=== PATIENT | female | born 1970 | race Caucasian/White ===

== ENCOUNTER → 2017-09-13 15:56 | Outpatient (CLI) | payer BC, SELFPAY ==
--- NOTE | 2017-09-13 15:59 | BI_ITS ---
MAMMOGRAPHY - BILATERAL SCREENING 3-D TYREE SYNTHESIS REASON FOR EXAM: Female, 46 years old. Bilateral Screening 3-D tomosynthesis PERTINENT HISTORY: Sister with breast cancer.. TECHNIQUE: 2-D mammograms and 3-D Tyree synthesis of the breast (s) were performed. CAD was performed. COMPARISON: 08/26/2016 FINDINGS: The breast composition is composed of scattered fibroglandular density. Scattered benign calcifications are seen. No dense spiculated masses or suspicious microcalcifications are identified. No architectural distortion is identified. There is no skin thickening or retraction. Stable well-defined subcentimeter nodules in both breasts consistent with lymph nodes. There has been no significant change since the prior study. BI/SCREENING MAMM (CAD), BILAT IMPRESSION: No mammographic signs of malignancy. Routine yearly mammograms recommended. ASSESSMENT CATEGORY: BIRADS Category 2: Benign. A letter regarding these results will be sent to the patient by the facility within 30 days. FOLLOW UP RECOMMENDATION: Yearly follow up mammogram recommended. (A) Approximately 10% of breast cancers are not detected by mammography. A normal mammogram should not delay biopsy of a clinically suspicious abnormality. Electronically Signed: Geo Burns MD at 10:50 EDT , Service support ,
== END ==
PROVIDERS: Family Provider Internal Medicine; PCP Internal Medicine; Visit Provider Clinical Nurse Specialist
DX: Z12.31 Encounter for screening mammogram for malignant neoplasm of breast (principal)
CPT/HCPCS: 77063; 77067

== ENCOUNTER → 2018-09-20 07:35 | Outpatient (CLI) | payer BC, SELFPAY ==
--- NOTE | 2018-09-20 07:42 | BI_ITS ---
MAMMOGRAPHY - BILATERAL SCREENING REASON FOR EXAM: Female, 47 years old. Routine annual screening examination. PERTINENT HISTORY: Sister with breast cancer. Aunt with breast cancer. TECHNIQUE: Digital bilateral breast tyree (3D mammographic acquisition) in the CC and MLO projections. 2-D mediolateral oblique (MLO) and craniocaudad (CC) views of both breasts were obtained. CAD: Full Field Digital Mammography with Computer Added Detection was performed. COMPARISON: Comparison is made with prior study dated September 13, 2017. FINDINGS: Breast Composition: There are scattered areas of fibroglandular density. There are no dominant masses or suspicious calcifications. There is a 4 mm x 4.5 mm well-defined nodule in the slightly upper lateral aspect of the left breast suggestive of a small cyst. This is unchanged. Stable appearance of the small bilateral benign appearing axillary lymph nodes. No other significant abnormalities are identified. There has been no significant change since the prior study. BI/SCREEN MAMM (CAD) W/TYREE BILAT IMPRESSION: Stable bilateral screening mammogram. Yearly follow-up mammogram recommended. (A) ASSESSMENT CATEGORY: BIRADS Category 2: Benign. A letter regarding these results will be sent to the patient by the facility within 30 days. Approximately 10% of breast cancers are not detected by mammography. A normal mammogram should not delay biopsy of a clinically suspicious abnormality. [id number] Electronically Signed: Fuad Edmondson, at 10:37 EDT , Service support ,
== END ==
PROVIDERS: Family Provider Internal Medicine; PCP Internal Medicine; Referring Provider Nurse Practitioner Women's Health; Visit Provider Nurse Practitioner Women's Health
DX: Z12.31 Encounter for screening mammogram for malignant neoplasm of breast (principal)
CPT/HCPCS: 77063; 77067

== ENCOUNTER → 2019-05-03 07:44 | Outpatient (CLI) | payer BC, SELFPAY ==
[2018-09-20 08:17] VITALS: BMI 34.2
[2019-05-03 08:57] LABS: AST(SGOT) 25 U/L (15-37); Alanine Aminotransfer ALT/SGPT 44 U/L (13-56)
== END ==
LOC: LAB.FUTURE 07:45 → LAB 07:48
PROVIDERS: PCP Internal Medicine; Referring Provider Podiatrist; Visit Provider Podiatrist
DX: B35.1 Tinea unguium (principal)
CPT/HCPCS: 36415; 84450; 84460

== ENCOUNTER → 2019-06-13 09:08 | Outpatient (CLI) | payer BC, SELFPAY ==
[2018-09-20 08:17] VITALS: BMI 34.2
[2019-06-13 10:02] LABS: AST(SGOT) 19 U/L (15-37); Alanine Aminotransfer ALT/SGPT 32 U/L (13-56)
== END ==
PROVIDERS: PCP Internal Medicine; Referring Provider Podiatrist; Visit Provider Podiatrist
DX: B35.1 Tinea unguium (principal)
CPT/HCPCS: 36415; 84450; 84460

== ENCOUNTER → 2019-08-14 13:04 | Outpatient (CLI) | payer BC, SELFPAY ==
[2018-09-20 08:17] VITALS: BMI 34.2
[2019-08-14 13:46] LABS: AST(SGOT) 21 U/L (15-37); Alanine Aminotransfer ALT/SGPT 30 U/L (13-56)
== END ==
PROVIDERS: PCP Internal Medicine; Referring Provider Podiatrist; Visit Provider Podiatrist
DX: B35.1 Tinea unguium (principal)
CPT/HCPCS: 36415; 84450; 84460

== ENCOUNTER → 2019-09-25 07:34 | Outpatient (CLI) | payer BC, SELFPAY ==
[2018-09-20 08:17] VITALS: BMI 34.2
--- NOTE | 2019-09-25 07:34 | BI_ITS ---
MAMMOGRAPHY - BILATERAL SCREENING REASON FOR EXAM: Female, 48 years old. Routine annual screening examination. PERTINENT HISTORY: Sister with breast cancer. Aunt with breast cancer. TECHNIQUE: Digital bilateral breast tyree (3D mammographic acquisition) in the CC and MLO projections. 2-D mediolateral oblique (MLO) and craniocaudad (CC) views of both breasts were obtained. CAD: Full Field Digital Mammography with Computer Added Detection was performed. COMPARISON: Comparison is made with prior study dated 09/20/2018 and 09/13/2017. FINDINGS: Breast Composition: There are scattered areas of fibroglandular density. There are no dominant masses or suspicious calcifications. Stable 4 mm x 4.5 mm well-defined nodule in the slightly upper lateral aspect of the left breast. Stable small benign appearing bilateral axillary lymph nodes. No other significant abnormalities are identified. There has been no significant change since the prior study. BI/SCREEN MAMM (CAD) W/TYREE BILAT IMPRESSION: Stable bilateral screening mammogram. Yearly follow-up mammogram recommended. (A) ASSESSMENT CATEGORY: BIRADS Category 2: Benign. A letter regarding these results will be sent to the patient by the facility within 30 days. Approximately 10% of breast cancers are not detected by mammography. A normal mammogram should not delay biopsy of a clinically suspicious abnormality. [id number] Electronically Signed: Fuad Edmondson, at 9:13 EDT , Service support ,
== END ==
PROVIDERS: PCP Internal Medicine; Referring Provider Nurse Practitioner Women's Health; Visit Provider Nurse Practitioner Women's Health
DX: Z12.31 Encounter for screening mammogram for malignant neoplasm of breast (principal); Z80.3 Family history of malignant neoplasm of breast
CPT/HCPCS: 77063; 77067

== ENCOUNTER → 2020-11-05 07:03 | Outpatient (CLI) | payer OTHER, SELFPAY ==
[2019-10-08 10:11] VITALS: BMI 34.2
--- NOTE | 2020-11-04 17:03 | BI_ITS ---
MAMMOGRAPHY - BILATERAL SCREENING REASON FOR EXAM: Female, 49 years old. Routine annual screening examination. PERTINENT HISTORY: Non-contributory. TECHNIQUE: Digital bilateral breast tyree (3D mammographic acquisition) in the CC and MLO projections. 2-D mediolateral oblique (MLO) and craniocaudad (CC) views of both breasts were obtained. CAD: Full Field Digital Mammography with Computer Added Detection was performed. COMPARISON: Comparison is made with prior examination 09/25/2019 and 09/20/2018. FINDINGS: Breast Composition: There are scattered areas of fibroglandular density. There are no dominant masses or suspicious calcifications. Stable 4 mm x 4.5 mm well-defined nodule in the slightly upper lateral aspect of the left breast. Stable benign-appearing bilateral axillary lymph nodes. No other significant abnormalities are identified. There has been no significant change since the prior study. BI/SCRN MAMM (CAD)W/TYREE BILAT IMPRESSION: Stable bilateral screening mammogram. Yearly follow-up mammogram recommended. (A) ASSESSMENT CATEGORY: BIRADS Category 2: Benign. A letter regarding these results will be sent to the patient by the facility within 30 days. Approximately 10% of breast cancers are not detected by mammography. A normal mammogram should not delay biopsy of a clinically suspicious abnormality. [id number] Electronically Signed: Fuad Edmondson MD at 8:49 EDT , Service support ,
== END ==
PROVIDERS: PCP Internal Medicine; Referring Provider Nurse Practitioner Women's Health; Visit Provider Nurse Practitioner Women's Health
DX: Z12.31 Encounter for screening mammogram for malignant neoplasm of breast (principal)
CPT/HCPCS: 77063; 77067

== ENCOUNTER 2021-04-15 16:40 | Outpatient (CLI) | payer OTHER, SELFPAY ==
[2021-04-22 14:07] LABS: HPV APTIMA, High Risk Negative (Negative)
== END 2021-04-15 23:59 | disposition home or self-care (01) ==
LOC: LABSPEC 16:42
PROVIDERS: PCP Internal Medicine; Referring Provider Nurse Practitioner Women's Health; Visit Provider Nurse Practitioner Women's Health
DX: Z12.4 Encounter for screening for malignant neoplasm of cervix (principal)
CPT/HCPCS: 87624; 88175; G0145

== ENCOUNTER → 2021-10-19 | Outpatient (CLI) | payer OTHER, SELFPAY ==
--- NOTE | 2021-10-19 07:46 | EKG12_ITS ---
Test Reason : HTN Blood Pressure : / mmHG Vent. Rate : 068 BPM Atrial Rate : 068 BPM P-R Int : 148 ms QRS Dur : 080 ms QT Int : 396 ms P-R-T Axes : 031 015 051 degrees QTc Int : 421 ms Normal sinus rhythm Normal ECG Confirmed by SARITA BLANK, GAGANDEEP ([id number]), editor dictionary MELANY DAMICO ([id number]) on 10/20/2021 6:16:16 AM Referred By: Payton Serrano Confirmed By:GAGANDEEP STEIN MD
== END | disposition home or self-care (01) ==
PROVIDERS: PCP Internal Medicine; Referring Provider Nurse Practitioner Family; Visit Provider Nurse Practitioner Family
DX: I10 Essential (primary) hypertension (principal)
CPT/HCPCS: 93005

== ENCOUNTER → 2021-11-12 | Outpatient (CLI) | payer OTHER, SELFPAY ==
--- NOTE | 2021-11-12 16:38 | BI_ITS ---
MAMMOGRAPHY - BILATERAL SCREENING 3-D TOMOSYNTHESIS REASON FOR EXAM: Female, 50 years old. screening for breast cancer PERTINENT HISTORY: No significant family history. TECHNIQUE: 2-D mammograms and 3-D Tomosynthesis of the breast (s) were performed. CAD was performed. COMPARISON: 11/04/2020 FINDINGS: The breast composition is heterogeneously dense that can obscure small breast masses. Scattered benign calcifications are seen. No dominant mass the right breast. Subcentimeter oval obscured equal density mass in the upper outer quadrant left breast mid depth and focal compression views recommended for further evaluation. No suspicious calcifications.. No architectural distortion is identified. There is no skin thickening or retraction. BI/SCRN MAMM (CAD)W/TYREE BILAT IMPRESSION: Subcentimeter oval obscured equal density mass in the upper outer quadrant left breast at mid depth and focal compression views recommended for further evaluation. ASSESSMENT CATEGORY: BIRADS Category 0: Incomplete. Need additional imaging evaluation as above. A letter regarding these results will be sent to the patient by the facility within 30 days. FOLLOW UP RECOMMENDATION: Additional imaging recommended as above. (E) Approximately 10% of breast cancers are not detected by mammography. A normal mammogram should not delay biopsy of a clinically suspicious abnormality. Electronically Signed: Dimitrios Hays MD at 8:29 EDT ,
== END | disposition home or self-care (01) ==
LOC: OPBI 11-13 07:37
PROVIDERS: PCP Internal Medicine; Visit Provider Nurse Practitioner Women's Health
DX: Z12.31 Encounter for screening mammogram for malignant neoplasm of breast (principal)
CPT/HCPCS: 77063; 77067

== ENCOUNTER → 2021-11-23 | Outpatient (CLI) | payer OTHER, SELFPAY ==
--- NOTE | 2021-11-23 14:36 | BI_ITS ---
MAMMOGRAPHY - UNILATERAL DIAGNOSTIC: LEFT BREAST REASON FOR EXAM: Female, 50 years old. Abnormal screening mammogram. PERTINENT HISTORY: Non-contributory. TECHNIQUE: Compression spot views of the left breast in the mediolateral oblique and craniocaudad projections were obtained. CAD: Full Field Digital Mammography with Computer Added Detection was performed. COMPARISON: Comparison is made with prior study dated 11/12/2021. FINDINGS: Breast Composition: The breasts are heterogeneously dense, which may obscure small masses. Stable 4 mm x 4.5 mm nodule seen in the slightly upper lateral aspect of the left breast. Correlation with ultrasound is recommended. No other significant abnormalities are identified. BI/DIAG MAMM W/CAD, UNILAT IMPRESSION: Persistent 4.5 mm x 4 mm nodule in the slightly upper lateral aspect of the left breast. Correlation with ultrasound is recommended. ASSESSMENT CATEGORY: BIRADS Category 0: Incomplete. Need additional imaging evaluation. A letter regarding these results will be sent to the patient by the facility within 30 days. Approximately 10% of breast cancers are not detected by mammography. A normal mammogram should not delay biopsy of a clinically suspicious abnormality. Electronically Signed: Fuad Edmondson MD at 15:40 EDT ,
--- NOTE | 2021-11-23 15:13 | US_ITS ---
STUDY: ULTRASOUND BREAST - LEFT REASON FOR EXAM: Female, 50 years old. Abnormal screening mammogram. TECHNIQUE: Axial and longitudinal images of the LEFT breast were performed with a high resolution ultrasound transducer. # OF IMAGES: 43 COMPARISON: Comparison is made with prior mammogram done earlier in the day and prior mammogram dated 11/12/2021. FINDINGS: LEFT breast at 3 cm from nipple. Increased flow is seen within it. Biopsy recommended. There is also evidence of a 5 mm x 4 mm x 5 mm hypoechoic nodule suggestive of a lymph node at the 1 o''clock position breast at 10 cm from nipple. US/Breast Limited Unilateral IMPRESSION: The mammographic abnormality corresponds to a 4 mm x 4 mm x 5 mm hypoechoic solid nodule at the 3 o''clock position of the breast 3 cm from nipple. Biopsy recommended. ASSESSMENT CATEGORY: BIRADS Category 4: Suspicious - Biopsy Should Be Considered. A letter regarding these results will be sent to the patient by the facility within 30 days. Electronically Signed: Fuad Edmondson MD at 9:59 EDT ,
== END | disposition home or self-care (01) ==
LOC: OPBI 14:28
PROVIDERS: PCP Internal Medicine; Visit Provider Nurse Practitioner Women's Health
DX: N63.20 Unspecified lump in the left breast, unspecified quadrant (principal); R92.8 Other abnormal and inconclusive findings on diagnostic imaging of breast
CPT/HCPCS: 76642; 77065

== ENCOUNTER → 2021-11-25 | Outpatient (CLI) | payer OTHER, SELFPAY ==
--- NOTE | 2021-11-25 08:00 | BRBX_PTH ---
PATIENT: MELIDA KEEN LOC: [facility] U#:[id number] AGE/SX: 50/F ROOM: RE11/25/[address]: Dr. Ton Arnold MD : 1970 BED: DIS: 11/25/2021 SPEC #: [id number] RECD: 11/25/21 11:03 STATUS: HARMONY CICI #: [id number] TYRESE: 11/25/21 08:[address]: Ton Arnold DEPT: SURGICAL PATHOLOGY RECD BY: Trent Ortiz ENTERED: 11/25/21 11:31 SP TYPE: BREAST BX OTHR DR: Dr. Codi Cordoba MD Tissues: Left breast, NOS Procedures: Surgery Specimen Level IV HEADER OPERATION: Left breast biopsy PRE-OP DIAGNOSIS: Left breast tissue TISSUE SUBMITTED: Left breast tissue MICROSCOPIC DIAGNOSIS Left breast, core biopsy: Fragments of fibroadipose tissue with fragments of benign lymph node tissue. Negative for atypia or malignancy. See comment. SJ:juan 11/26/2021 COMMENT Breast glandular and ductal tissue is not present in the specimen. The findings may represent intramammary lymph node. Correlation with clinical, radiologic findings and appropriate follow up are necessary. MICROSCOPIC DESCRIPTION Slides are reviewed. GROSS DESCRIPTION Received in fixative is one container labeled with the patient's name and designated left breast tissue. The specimen consists of multiple elongated fragments of worley-yellow fibroadipose tissue that in aggregate measure 2.5 x 1 x 0.1 cm. The entire specimen is submitted in one cassette. / MONO:juan 11/25/2021 TC:5 CPT: 47097
== END | disposition home or self-care (01) ==
LOC: LABSPEC 11:08
PROVIDERS: PCP Internal Medicine; Referring Provider Surgery; Visit Provider Surgery
DX: L98.7 Excessive and redundant skin and subcutaneous tissue (principal)
CPT/HCPCS: 88305

== ENCOUNTER → 2022-06-07 | Outpatient (CLI) | payer OTHER, SELFPAY ==
--- NOTE | 2022-06-07 09:29 | US_ITS ---
STUDY: ULTRASOUND BREAST - LEFT REASON FOR EXAM: Female, 51 years old. History of prior ultrasound-guided breast biopsy. TECHNIQUE: Axial and longitudinal images of the LEFT breast were performed with a high resolution ultrasound transducer. # OF IMAGES: 18 COMPARISON: Comparison is made with prior ultrasound dated November 23, 2021. FINDINGS: LEFT Breast: Persistent 3 mm x 4 mm x 4 mm hypoechoic nodule at the 3:00 position of the breast at 3 cm from the nipple. A tissue clip marker is seen within it. US/Breast Limited Unilateral IMPRESSION: Status post ultrasound-guided breast biopsy at the 3:00 position breast at 3 cm from the nipple. ASSESSMENT CATEGORY: BIRADS Category 2: Benign. A letter regarding these results will be sent to the patient by the facility within 30 days. Electronically Signed: Fuad Edmondson MD at 15:08 EDT ,
[2022-06-07 11:55] LABS: Absolute Lymphocyte Count 1.02 X10^3/uL (0.83-4.51); Absolute Neutrophil Count 3.9 X10^3/uL (2.0-7.7); Basophil# 0.04 X10^3/uL; Basophil% 0.7 % (0-1); Eosinophil# 0.04 X10^3/uL; Eosinophils% 0.7 % (0-5); Hematocrit 38.5 % (37-47); Lymphocyte # 1.02 X10^3/ul (0.83-4.51); Lymphocyte % 19.1 % (19-41); Mean Corp Hgb Conc 33.8 g/dL (32-36); Mean Corpuscular Hgb 30.3 pg (27.0-32.0); Mean Corpuscular Volume 89.7 fL (81-99); Mean Platelet Vol. 11.4 fl (6.2-12.0); Monocyte# 0.34 X10^3/uL; Monocyte% 6.4 % (0-10); NRBC Flagged by Analyzer 0 % (0-5); Neutrophil # 3.89 X10^3/uL (2.7-7.7); Neutrophil % 72.9 % (47-70); Platelet Count 179 K/mm3 (150-450); RBC Distribution Width CV 12.4 % (11.6-14.6); RBC Distribution Width SD 40.3 fl (35.1-43.9); Red Blood Count 4.29 M/mm3 (4.2-5.4); White Blood Count 5.3 K/mm3 (4.4-11.0)
[2022-06-07 12:40] LABS: Vitamin D,25 Hydroxy 11.3 ng/mL
[2022-06-07 12:51] LABS: T4 Free Direct 0.98 ng/dL (0.76-1.46)
== END | disposition home or self-care (01) ==
PROVIDERS: Nurse Practitioner Women's Health; PCP Internal Medicine; Referring Provider Surgery; Visit Provider Surgery
DX: R92.8 Other abnormal and inconclusive findings on diagnostic imaging of breast (principal); Z13.21 Encounter for screening for nutritional disorder; L65.9 Nonscarring hair loss, unspecified; R53.83 Other fatigue; Z13.29 Encounter for screening for other suspected endocrine disorder
CPT/HCPCS: 36415; 76642; 82306; 84439; 84443; 85025

== ENCOUNTER → 2022-07-05 | Outpatient (CLI) | payer OTHER, SELFPAY ==
[2022-07-05 13:16] LABS: Vitamin D,25 Hydroxy 29.1 ng/mL
== END | disposition home or self-care (01) ==
LOC: PAVLAB 11:45
PROVIDERS: PCP Internal Medicine; Referring Provider Nurse Practitioner Women's Health; Visit Provider Nurse Practitioner Women's Health
DX: Z13.21 Encounter for screening for nutritional disorder (principal)
CPT/HCPCS: 36415; 82306

== ENCOUNTER → 2022-08-02 | Outpatient (CLI) | payer OTHER, SELFPAY ==
[2022-08-02 13:47] LABS: Vitamin D,25 Hydroxy 48.1 ng/mL
== END | disposition home or self-care (01) ==
PROVIDERS: PCP Internal Medicine; Referring Provider Nurse Practitioner Women's Health; Visit Provider Nurse Practitioner Women's Health
DX: Z13.21 Encounter for screening for nutritional disorder (principal)
CPT/HCPCS: 36415; 82306

== ENCOUNTER → 2022-12-13 | Outpatient (CLI) | payer OTHER, SELFPAY ==
--- NOTE | 2022-12-13 09:47 | BI_ITS ---
MAMMOGRAPHY - BILATERAL SCREENING REASON FOR EXAM: Female, 52 years old. Routine annual screening examination. PERTINENT HISTORY: Sister with breast cancer. Aunt with breast cancer. TECHNIQUE: Digital bilateral breast tyree (3D mammographic acquisition) in the CC and MLO projections. 2-D mediolateral oblique (MLO) and craniocaudad (CC) views of both breasts were obtained. CAD: Full Field Digital Mammography with Computer Added Detection was performed. COMPARISON: Comparison is made with prior study dated November 12, 2021 and November 23, 2021. FINDINGS: Breast Composition: There are scattered areas of fibroglandular density. There are no dominant masses or suspicious calcifications. Interstitial clip marker is seen in the slightly upper lateral aspect of the left breast. The previously seen tiny nodule has almost completely resolved. No other significant abnormalities are identified. BI/SCRN MAMM (CAD)W/TYREE BILAT IMPRESSION: Stable bilateral screening mammogram. Status post ultrasound-guided biopsy of a nodular density in the slightly upper lateral aspect of the left breast. The nodule has almost completely resolved. Yearly follow-up mammogram recommended. (A) ASSESSMENT CATEGORY: BIRADS Category 2: Benign. A letter regarding these results will be sent to the patient by the facility within 30 days. Approximately 10% of breast cancers are not detected by mammography. A normal mammogram should not delay biopsy of a clinically suspicious abnormality. [id number] Electronically Signed: Fuad Edmondson MD at 11:12 EDT ,
== END | disposition home or self-care (01) ==
LOC: OPBI 09:46
PROVIDERS: PCP Internal Medicine; Referring Provider Nurse Practitioner Women's Health; Visit Provider Nurse Practitioner Women's Health
DX: Z12.31 Encounter for screening mammogram for malignant neoplasm of breast (principal); Z80.3 Family history of malignant neoplasm of breast
CPT/HCPCS: 77063; 77067

== ENCOUNTER → 2023-12-22 | Outpatient (CLI) | payer OTHER, SELFPAY ==
--- NOTE | 2023-12-22 17:16 | BI_ITS ---
MAMMOGRAPHY - BILATERAL SCREENING REASON FOR EXAM: Female, 53 years old. Routine annual screening examination. PERTINENT HISTORY: Sister with breast cancer. Aunt with breast cancer. Prior left ultrasound-guided breast biopsy. TECHNIQUE: Digital bilateral breast tyree (3D mammographic acquisition) in the CC and MLO projections. 2-D mediolateral oblique (MLO) and craniocaudad (CC) views of both breasts were obtained. CAD: Full Field Digital Mammography with Computer Added Detection was performed. COMPARISON: Comparison is made with prior study December 13, 2022 and November 12, 2021. FINDINGS: Breast Composition: There are scattered areas of fibroglandular density. There are no dominant masses or suspicious calcifications. A tissue clip marker is seen in the slightly upper lateral aspect of the left breast. Stable small bilateral axillary lymph nodes. No other significant abnormalities are identified. There has been no significant change since the prior study. BI/SCRN MAMM (CAD)W/TYREE BILAT IMPRESSION: Stable bilateral screening mammogram. Yearly follow-up mammogram recommended. (A) ASSESSMENT CATEGORY: BIRADS Category 2: Benign. A letter regarding these results will be sent to the patient by the facility within 30 days. Approximately 10% of breast cancers are not detected by mammography. A normal mammogram should not delay biopsy of a clinically suspicious abnormality. [id number] Electronically Signed: Fuad Edmondson MD at 8:42 EDT ,
== END | disposition home or self-care (01) ==
LOC: OPBI 12-23 08:36
PROVIDERS: PCP Internal Medicine; Referring Provider Nurse Practitioner Women's Health; Visit Provider Nurse Practitioner Women's Health
DX: Z12.31 Encounter for screening mammogram for malignant neoplasm of breast (principal); Z80.3 Family history of malignant neoplasm of breast
CPT/HCPCS: 77063; 77067

== ENCOUNTER → 2024-12-25 | Outpatient (CLI) | payer OTHER, SELFPAY ==
--- NOTE | 2024-12-25 17:16 | BI_ITS ---
EXAM: SCRN MAMM (CAD)W/TYREE BILAT DATE: 12/25/2024 CLINICAL HISTORY: F, Age 54 y/o , SCREENING Sister with breast cancer. Aunt with breast cancer. History of prior left ultrasound-guided breast biopsy. TECHNIQUE: Procedure Code: [id number] Modality: MG Procedure: SCRN MAMM (CAD)W/TYREE BILAT COMPARISON: Prior exam(s) dated December 23, 2023.. FINDINGS: TISSUE DENSITY: There are scattered areas of fibroglandular density. Bilateral Breast Mammographic Findings: No significant masses, calcifications or other abnormalities are identified. A tissue clip marker is once again seen in the slightly upper lateral aspect of the left breast. Stable small bilateral axillary lymph nodes. No suspicious masses, areas of developing architectural distortion, or suspicious calcifications. There has been no significant interval change. BI/SCRN MAMM (CAD)W/TYREE BILAT IMPRESSION: Stable bilateral screening mammogram. OVERALL FINAL ASSESSMENT BI-RADS 2: BENIGN RECOMMENDATION: Routine annual follow-up in 1 Year Additional Recommendation none A letter with findings and recommendations will be mailed to the patient. Reading Location: [id number]
--- OUTSIDE RECORDS SUMMARY | 2024-12-26 07:10 | XMS RPT_ITS | CCD ---
Author Organization [facility] ion Partnership [facility] Care Team Providers Care Communication Lecturer Name Role Phone Gato BLANK, Paula Bray Unavailable [phone] ROLANDO Ritter RN, Yesi Guzman Unavailable Unavailzoie Moore WARE SERVER, Paige Amaya Unavailable Dr. Codi Cordoba Primary Care Provider Dr. Codi Cordoba Referring Provider Dr. Ton Arnold Attending Provider Codi Cordoba MD Primary Care Provider Codi Cordoba MD Primary Care Provider Dr. Codi Cordoba Primary Care Provider Dr. Codi Cordoba Referring Provider Oscar WARE SERVER, WARE SERVER-C Paige Attending Provider ONEYDA ROSA Referring Unavailable ONEYDA ROSA Primary Care Unavailable ONEYDA ROSA Attending Unavailable ONEYDA ROSA Primary Care Unavailable LAURA GARCIA Referring Unavailable Codi Cordoba Primary Care Unavailable Paige Moore Referring Unavailable Paige Moore Attending Unavailable Paige Moore Attending Unavailable Codi Cordoba Referring Unavailable Codi Cordoba Primary Care Unavailable Medications Current Medications Medication Drug Class(es) Dates Sig (Normalized) Sig (Original) biotin 5 mg oral capsule (3 sources) Start: 06-07-2022 take 5 mg by mouth once daily Biotin Active 5 MG PO DAILY June 07, 2022 12:00am Cholecalciferol (2 sources) Vitamin D Start: 07-05-2022 take 1250 ug by mouth every week Cholecalciferol (Vitamin D3) Active 1250 MCG PO EVERY WEEK July 05, 2022 12:00am fluconazole 150 mg oral tablet (17 sources) Azole Antifungal Start: 07-12-2022 Fluconazole (Diflucan) 150 mg tablet Active 150 MG PO Q3D 2 July 12, 2022 12:00am Start: 08-18-2017 End: 09-19-2017 Fluconazole Discontinued 150 MG PO .COMPLEX 2 August 25, 2017 5:05pm September 19, 2017 8:16am 150 mg PO take one po now and repeat in 3 days Start: 11-12-2016 DIFLUCAN 150 M G TABS take 1 po now and repeat in 72 hours FLUCONAZOLE [id number] Paula Hoskins MD [place] (Nk) (4 sources) Start: 09-20-2018 [place] (Nk) A ctive September 20, 2018 12:00am Completed/Discontinued Medications Medication Drug Class(es) Dates Sig (Normalized) Sig (Original) Levonorgestrel-Ethin yl Estrad (7 sources) Progestin, Estrogen, Progestin-containi ng Intrauterine Device Start: 05-26-2013 End: 06-15-2017 Levonorgestrel-Eth inyl Estrad Discontinued 1 EACH PO DAILY May 26, 2013 12:00am June 15, 2017 11:26am meclizine hydrochloride 25 mg oral tablet (2 sources) Antiemetic Start: 07-04-2017 End: 02-15-2022 take 1 tablet by mouth every six hours as needed meclizine (ANTIVERT) 25 mg tab Take 1 tablet by mouth every 6 hours as needed (dizziness). 30 tablet 0 07/04/2017 02/15/2022 Discontinued Comment on above: Take 1 tablet by imelda th every 6 hours as needed (dizziness). Drug Treatment Unknown - unknown (2 sources) No information available. Problems Active Problems Problem Classification Problem Date Documented Date Episodic/Chronic Administrative/social admission (1 source) Persons encountering health services in other specified circumstances; Translations: [Encounter to establish care] Onset: 11-22-2024 Episodic Allergic reactions (2 sources) Unspecified contact dermatitis, unspecified cause; Translations: [Contact dermatitis and other eczema, unspecified cause] 06-07-2022 Episodic Influenza (1 source) Influenza-like illness; Translations: [Influenza due to unidentified influenza virus with other respiratory manifestations] Episodic Malaise and fatigue (5 sources) Fatigue; Translations: [Other fatigue] 06-07-2022 Episodic Menopausal disorders (7 sources) Menopausal syndrome; Translations: [Menopausal and female climacteric states] 04-15-2021 Chronic Menstrual disorders (3 sources) Irregular periods; Translations: [Irregular menstruation, unspecified] Onset: 07-23-2013 07-23-2013 Chronic Open wounds of head; neck; and trunk (7 sources) Laceration of forehead; Translations: [Laceration without foreign body of other part of head, initial encounter] 05-27-2013 Episodic Other circulatory disease (1 source) Elevated blood-pressure reading, without diagnosis of hypertension; Translations: [Elevated blood pressure reading without diagnosis of hypertension] Onset: 11-22-2024 Episodic Other nervous system disorders (1 source) Other chronic pain; Translations: [Chronic shoulder pain, unspecified laterality] Onset: 02-01-2024 Chronic Other nutritional; endocrine; and metabolic disorders (3 sources) Obesity; Translations: [Obesity, unspecified] Onset: 01-28-2014 01-28-2014 Chronic Other nutritional; endocrine; and metabolic disorders (1 source) Obesity, unspecified; Translations: [Obesity, unspecified class, unspecified obesity type, unspecified whether serious comorbidity present] Onset: 01-28-2014 Chronic Other screening for suspected conditions (not mental disorders or infectious disease) (8 sources) Mammography abnormal; Translations: [Other abnormal and inconclusive findings on diagnostic imaging of breast] Onset: 12-21-2024 Episodic Other skin disorders (3 sources) Loss of hair; Translations: [Nonscarring hair loss, unspecified] 06-07-2022 Episodic Other skin disorders (2 sources) Nonscarring hair loss, unspecified; Translations: [Alopecia, unspecified] 06-07-2022 Episodic Residual codes; unclassified (3 sources) Obstructive sleep apnea syndrome; Translations: [Obstructive sleep apnea (adult) (pediatric)] Onset: 01-28-2014 01-28-2014 Chronic Residual codes; unclassified (1 source) Obstructive sleep apnea (adult) (pediatric); Translations: [GUANAKITO (obstructive sleep apnea)] Onset: 11-22-2024 Chronic Screening and history of mental health and substance abuse codes (2 sources) Encounter for screening for depression; Translations: [Encounter for screening examination for other mental health and behavioral disorders] Onset: 11-22-2024 Episodic Spondylosis; intervertebral disc disorders; other back problems (3 sources) Prolapsed lumbar intervertebral disc; Translations: [Other intervertebral disc displacement, lumbar region] 07-08-2009 Chronic Unclassified (1 source) Acute cough; Translations: [Acute cough] Onset: 02-01-2024 Past or Other Problems Problem Classification Problem Date Documented Date Episodic/Chronic Biliary tract disease (3 sources) Cholelithiasis without obstruction; Translations: [Calculus of gallbladder without cholecystitis without obstruction] Onset: 08-14-2015 08-14-2015 Episodic Other female genital disorders (3 sources) Enlarged uterus; Translations: [Hypertrophy of uterus] Onset: 09-13-2016 09-14-2016 Episodic Other non-traumatic joint disorders (1 source) Pain in unspecified shoulder; Translations: [Chronic shoulder pain, unspecified laterality] Onset: 02-01-2024 Episodic Results Test Name Value Interpretation Reference Range Facility 25(OH)D3 [facility] 2024 25-hydroxyvitamin D3 [Mass/Vol] 24.5 ng/mL Low 31.0-80.0 [facility] Comment on above: Order Comment: Speci men Type: BLOOD SPECIMEN Ordering Facility: [facility] Address: [address] [place] [address] Performed By: #### 1 989-3 #### [facility] CLIA [id number] [address] [place] [address] [place] CNOVon 11-22-2024 CNOV Office Visit (FAMPWS) MEHNAZ TORRES ([id number]) 1970 F Date Time Provider Department 11/22/24 3:20 PM ONEYDA ROSA FAMPWS During your visit today, we recorded the following information about you: Temperature Pulse Respiration Blood pressure 97.9 degrees 79/minute 20/minute 156/95 Weight Height 93.4 kg 1.537 m Oneyda Rosa MD 11/22/2024 4:07 PM Signed Family Medicine OUTPATIENT VISIT November 22, 2024 CC: Establish care HPI: 53 year old female patient with a history of GUANAKITO Obesity Here to establish care Brought in a lipid panel. LDL 98. Last colonoscopy 2015, no colonic polyps. No wt loss, GI symptoms at present. Asking if she is due for dexa. No hx of fractures. She is feeling well today. She is feeling anxious due to having many life stressors currently. Does not feel she needs therapy or meds currently. She recently had a mammogram out of system. Review of Systems PAIN ASSESSMENT: Negative for pain, history of chronic pain, or current treatment for a chronic pain condition. GENERAL: No weight loss, or fevers HEENT: Negative for frequent or significant headaches RESPIRATORY: Negative for cough, wheezing, shortness of breath CARDIOVASCULAR: Negative for chest pain, palpitations, PND or orthopnea GI: No nausea, vomiting, or diarrhea or abdominal pain. No UT bleeding or melana : No history of dysuria, frequency, urgency, or change in urine appearance NEURO: No history of headaches, numbness, weakness, or changes to vision or hearing Health maintenance: Depression Screening Never done Anxiety Screening Never done Hepatitis B Vaccine(1 of 3 - 19+ 3-dose series) Never done Shingrix Vaccine(1 of 2) Never done Pneumococcal Vaccine: 50+(1 of 1 - PCV) Never done Diabetes Screening due on 06/13/2020 Colorectal Cancer Screening due on 07/08/2020 Cervical Cancer Screening due on 08/26/2021 DTaP,Tdap,Td Vaccine(2 - Td or Tdap) due on 07/20/2022 Mammogram Screening due on 12/14/2023 Covid-19 Vaccine( season) due on 10/22/2024 Allergies: ALLERGIES No Known Allergies Medications: Cholecalciferol, Vitamin D3, (VITAMIN D) 25 mcg (1,000 unit) cap Take 1 capsule by mouth once daily. Past Medical History: PAST MEDICAL HISTORY Diagnosis Date Arthritis of both shoulders Cholelithiasis 09/10/2015 Epigastric pain 09/10/2015 Herniated lumbar intervertebral disc L5-S1 Irregular menses Social History: SOCIAL HISTORY[1] Family History: Family History Problem Relation Age of Onset Hypertension Mother Heart Father Hypertropic Heart Breast Cancer Sister other (Crohn's) Sister Diabetes Maternal Grandmother Colon Cancer Maternal Grandfather Heart disease Paternal Grandfather BP 156/95 Pulse 79 Temp 36.6 ?C (97.9 ?F) (Temporal) Resp 20 Ht 153.7 cm (5' 0.5") Wt 93.4 kg (205 lb 12.8 oz) LMP 06/25/2016 (Exact Date) SpO2 96% BMI 39.53 kg/m? General: Awake, alert, not in acute distress, obese. DATABASE SUPPORT: Answering questions appropriately. No abnormal posturing or positioning. Speech is normal. Strength grossly intact. RESP: Clear lungs bilateral with good air entry, No increased work of breathing CVS: RRR, No murmur. Pulses 2+. GI: Abdomen is soft, non distended, non tender. No masses or hepatomegaly appreciated. Skin/Other: No rashes or lesions. HEENT: pupils equal Extremities: No peripheral edema, swelling or erythema of lower extremities. Labs: Reviewed the following: Pertinent labs as outlined above Lipids reviewed Imaging: Reviewed the following: Reviewed recent pertinent imaging Assessment/Plan: ASSESSMENT/PLAN: 1. Encounter to establish care - ICD9: V65.8, ICD10: Z76.89 (primary diagnosis) Reviewed hx as above - VITAMIN D 25 HYDROXY 2. Screening for depression - ICD9: V79.0, ICD10: Z13.31 neg - DEPRESSION SCREENING 3. Encounter for screening examination for other mental health and behavioral disorders - ICD9: V79.8, ICD10: Z13.39 Endorsing sypmtoms, declines referral to therapy. Will review at next visit - ANXIETY SCREENING 4. Obesity, unspecified class, unspecified obesity type, unspecified whether serious comorbidity present - ICD9: 278.00, ICD10: E66.9 Newly diagnosed - Behavioral intervention - COMPREHENSIVE METABOLIC PANEL - HEMOGLOBIN A1C 5. GUANAKITO (obstructive sleep apnea) - ICD9: 327.23, ICD10: G47.33 Not being treated. Discussed need for titration study, that GUANAKITO could contribute to HTN if this is confirmed. - PAP TITRATION PSG (CPAP, BIPAP, ASV) - POLYSOMNOGRAM (PSG) 6. Elevated blood pressure reading without diagnosis of hypertension - ICD9: 796.2, ICD10: R03.0 - Encouraged dietary sodium restriction/DASH diet - Recommended regular aerobic exercise. - Recommend home blood pressure monitoring, to bring results in on next visit - Goal of BP <130/80 - TSH W/REFLEX FT4 Cmp Discus (more content not included)... Normal [facility] Comprehensive metabolic 2000 panelon 11-22-2024 Albumin [Mass/Vol] 4.4 g/dL Normal 3.9-4.9 [facility] [place] Comment on above: Order Comment: Speci men Type: BLOOD SPECIMEN Ordering Facility: [facility] Address: [address] [place] [address] Performed By: #### T ANDRE, 15177-7 #### [facility] CLIA [id number] [address] [place] [address] [place] ALP [Catalytic activity/Vol] 92 U/L Normal 34-123 [facility] Comment on above: Order Comment: Speci men Type: BLOOD SPECIMEN Ordering Facility: [facility] Address: [address] [place] [address] Performed By: #### T ANDRE, 59974-8 #### [facility] CLIA [id number] [address] [place] [address] [place] ALT [Catalytic activity/Vol] 21 U/L Normal 7-38 [facility] Comment on above: Order Comment: Speci men Type: BLOOD SPECIMEN Ordering Facility: [facility] Address: [address] [place] [address] Performed By: #### T [facility], 73332-7 #### [facility] CLIA [id number] [address] [place] [address] [place] Anion gap [Moles/Vol] 12 mmol/L Normal 8-15 [facility] Comment on above: Order Comment: Speci men Type: BLOOD SPECIMEN Ordering Facility: [facility] Address: [address] [place] [address] Performed By: #### T JESÚS, 66061-6 #### [facility] CLIA [id number] [address] [place], [place] [id number] [place] AST [Catalytic activity/Vol] 22 U/L Normal 13-35 [facility] Comment on above: Order Comment: Speci men Type: BLOOD SPECIMEN Ordering Facility: [facility] Address: [address] [place], [place] [id number] Performed By: #### T JESÚS, 09090-9 #### [facility] CLIA [id number] [address] [place], [place] [id number] [place] Bilirubin [Mass/Vol] 0.3 mg/dL Normal 0.2-1.3 [facility] Comment on above: Order Comment: Speci men Type: BLOOD SPECIMEN Ordering Facility: [facility] Address: [address] [place], [place] [id number] Performed By: #### T JESÚS, 02537-5 #### [facility] CLIA [id number] [address] [place], [place] [id number] [place] Calcium [Mass/Vol] 9.5 mg/dL Normal 8.5-10.2 [facility] Comment on above: Order Comment: Speci men Type: BLOOD SPECIMEN Ordering Facility: [facility] Address: [address] [place], [place] [id number] Performed By: #### T JESÚS, 04210-5 #### [facility] CLIA [id number] [address] [place], [place] [id number] [place] Chloride [Moles/Vol] 103 mmol/L Normal 98-107 [facility] Comment on above: Order Comment: Speci men Type: BLOOD SPECIMEN Ordering Facility: [facility] Address: [address] [place], [place] [id number] Performed By: #### T JESÚS, 29887-6 #### [facility] CLIA [id number] [address] [place], [place] [id number] [place] CO2 [Moles/Vol] 27 mmol/L Normal 22-30 [facility] Comment on above: Order Comment: Speci men Type: BLOOD SPECIMEN Ordering Facility: [facility] Address: [address] [place] [address] Performed By: #### T ANDRE, 81734-1 #### [facility] CLIA [id number] [address] [place] [address] [place] Creatinine [Mass/Vol] 0.77 mg/dL Normal 0.58-0.96 [facility] Comment on above: Order Comment: Speci men Type: BLOOD SPECIMEN Ordering Facility: [facility] Address: [address] [place] [address] Performed By: #### T ANDRE, 35079-7 #### [facility] CLIA [id number] [address] [place] [address] [place] eGFRcr SerPlBld CKD-EPI 2020 91 mL/min/1.73m??? Normal >=60 [facility] Comment on above: Order Comment: Speci men Type: BLOOD SPECIMEN Ordering Facility: [facility] Address: [address] [place] [address] Result Comment: Sujata mated Glomerular Filtration Rate (eGFR) is calculated using the 2020 CKD-EPI creatinine equation. This equation utilizes serum creatinine, sex, and age as parameters. The creatinine assay has traceable calibration to isotope dilution-mass spectrometry. Refer to KDIGO guidelines for clinical interpretation. In patients with unstable renal function, e.g. those with acute kidney injury, the eGFR may not accurately reflect actual GFR. Performed By: #### T [facility], 90485-0 #### [facility] CLIA [id number] [address] [place] [address] [place] Glucose [Mass/Vol] 89 mg/dL Normal 74-99 [facility] Comment on above: Order Comment: Speci men Type: BLOOD SPECIMEN Ordering Facility: [facility] Address: [address] [place] [address] Result Comment: The [place] Diabetes Association (ADA) provides guidance for cutoff values for fasting glucose and random glucose. The ADA defines fasting as no caloric intake for at least 8 hours. Fasting plasma glucose results between 100 to 125 mg/dL indicate increased risk for diabetes (prediabetes). Fasting plasma glucose results greater than or equal to 126 mg/dL meet the criteria for diagnosis of diabetes. In the absence of unequivocal hyperglycemia, results should be confirmed by repeat testing. In a patient with classic symptoms of hyperglycemia or hyperglycemic crisis, random plasma glucose results greater than or equal to 200 mg/dL meet the criteria for diagnosis of diabetes. Reference: Standards of Medical Care in Diabetes 2016, [place] Diabetes Association. Diabetes Care. 2016.39(Suppl 1). Performed By: #### T ANDRE, 14012-1 #### [facility] CLIA [id number] [address] [place] [address] [place] Potassium [Moles/Vol] 4.3 mmol/L Normal 3.7-5.1 [facility] Comment on above: Order Comment: Speci men Type: BLOOD SPECIMEN Ordering Facility: [facility] Address: [address] [place] [address] Performed By: #### T ANDRE, 73901-8 #### [facility] CLIA [id number] [address] [place] [address] [place] Protein [Mass/Vol] 7.4 g/dL Normal 6.3-8.0 [facility] Comment on above: Order Comment: Speci men Type: BLOOD SPECIMEN Ordering Facility: [facility] Address: [address] [place] [address] Performed By: #### T [facility], 17298-3 #### [facility] CLIA [id number] [address] [place] [address] [place] Sodium [Moles/Vol] 142 mmol/L Normal 136-144 [facility] Comment on above: Order Comment: Speci men Type: BLOOD SPECIMEN Ordering Facility: [facility] Address: [address] [place] [address] Performed By: #### T [facility], 46207-3 #### [facility] CLIA [id number] [address] [place] [address] [place] Urea nitrogen [Mass/Vol] 13 mg/dL Normal 7-21 [facility] Comment on above: Order Comment: Blui men Type: BLOOD SPECIMEN Ordering Facility: [facility] Address: [address] [place] [address] Performed By: #### T [facility], 57829-4 #### [facility] CLIA [id number] [address] [place] [address] [place] HbA1c (Bld)on 11-22-2024 Average glucose Estimated from glycated hemoglobin (Bld) [Mass/Vol] 108 mg/dL Normal [facility] Comment on above: Order Comment: [facility] Type: BLOOD SPECIMEN Ordering Facility: [facility] Address: [address] [place] [address] Result Comment: eAG: (Estimated average glucose) is a calculated value from HgbA1c and is wireless sales representative of the average blood glucose level in the last 2-3 month period. Performed By: #### 5 5454-3 #### [facility] CLIA [id number] [address] [place] [address] [place] HbA1c (Bld) [Mass fraction] 5.4 % Normal 4.3-5.6 [facility] Comment on above: Order Comment: Sarah men Type: BLOOD SPECIMEN Ordering Facility: [facility] Address: [address] [place] [address] Result Comment: [place] Diabetes Association guidelines indicate that patients with HgbA1c in the range 5.7-6.4% are at increased risk for development of diabetes, and intervention by lifestyle modification may be beneficial. HgbA1c greater or equal to 6.5% is considered diagnostic of diabetes. Performed By: #### 5 5454-3 #### [facility] CLIA [id number] [address] [place] [address] [place] TSH W/REFLEX FT4on 10-02-202 5 TSH Qn 1.450 m[IU]/L Normal 0.270-4.200 [facility] Comment on above: Order Comment: Speci men Type: BLOOD SPECIMEN Ordering Facility: [facility] Address: [address] [place] [address] Performed By: #### T [facility], 85814-0 #### [facility] CLIA [id number] [address] [place] [address] [place] CNOVon 02-01-2024 CNOV Office Visit (UCWSTR) TORRESMEHNAZ ([id number]) 1970 F Date Time Provider Department 02/01/24 6:00 PM LAURA GARCIA WSTR During your visit today, we recorded the following information about you: Temperature Pulse Respiration Blood pressure 97.7 degrees 84/minute 18/minute 122/80 Weight 94.9 kg Laura Garcia PA-C 02/01/2024 7:19 PM Signed This note was created using [employer]. Subjective Mehnaz Torres is a 53 year old female. HPI Patient presents with a chief complaint of cough and chest congestion. She had COVID about 3 weeks ago. States her cough had improved but then the past 3 days worsened again. She started getting some pain in her chest with cough and with movement. States it also hurts to sneeze. Denies shortness of breath. No pain in her back. Denies leg pain or swelling. No history of PE or DVT. No recent surgeries. No diarrhea or vomiting. She also is complaining of bilateral shoulder pain for several years. She states that hurts to lift her arms up above her head and her arms feel weak. Denies any injury to her shoulders. She has not been evaluated for this previously. Review of Systems HENT: Positive for congestion. Negative for ear pain, rhinorrhea, sinus pressure, sinus pain and sore throat. Respiratory: Positive for cough. Cardiovascular: Positive for chest pain (with cough and movement). Musculoskeletal: Bilateral shoulder pain All other systems reviewed and are negative. PAST MEDICAL HISTORY Diagnosis Date Cholelithiasis 09/10/2015 Epigastric pain 09/10/2015 Herniated lumbar intervertebral disc L5-S1 Irregular menses No current outpatient medications on file. No current facility-administere d medications for this visit. PAST SURGICAL HISTORY Procedure Laterality Date COLONOSCOPY FLX DX W/COLLJ SPEC WHEN PFRMD 07/09/2015 Colonoscopy ESOPHAGOGASTRODUODEN OSCOPY TRANSORAL DIAGNOSTIC 07/09/2015 EGD L'SCOPE CHOLECYSTECTOMY 09/10/15 UNSPECIFIED ORAL SURGERY PROCEDURE, BY REPORT wisdom teeth removed. FAMILY HISTORY Problem Relation Age of Onset Hypertension Mother Heart Father Hypertropic Heart Breast Cancer Sister other (Crohn's) Sister Social History Tobacco Use Smoking status: Never Smokeless tobacco: Never Substance Use Topics Alcohol use: Yes Comment: Socially Drug use: No Objective BP 122/80 Pulse 84 Temp 36.5 ?C (97.7 ?F) (Tympanic) Resp 18 Wt 94.9 kg (209 lb 3.5 oz) LMP 06/25/2016 (Exact Date) SpO2 97% BMI 37.06 kg/m? Physical Exam Vitals reviewed. Constitutional: Appearance: Normal appearance. HENT: Head: Normocephalic and atraumatic. Right Ear: Tympanic membrane, ear canal and external ear normal. Left Ear: Tympanic membrane, ear canal and external ear normal. Nose: Congestion present. Mouth/Throat: Mouth: Mucous membranes are moist. Pharynx: Oropharynx is clear. Cardiovascular: Rate and Rhythm: Normal rate and regular rhythm. Heart sounds: Normal heart sounds. Pulmonary: Effort: Pulmonary effort is normal. Breath sounds: Normal breath sounds. No wheezing or rhonchi. Comments: Patient has tenderness over the right chest wall on palpation and with movement. Also some mild pain with taking a breath. Musculoskeletal: Comments: No erythema swelling or bruising of the bilateral shoulders. She has pain with lifting the arms past 90 degrees. Pain with internal and external rotation bilaterally. Radial pulse 2+ bilaterally. Normal hand grasp strength. Skin: General: Skin is warm and dry. Neurological: General: No focal deficit present. Mental Status: She is alert and oriented to person, place, and time. Assessment and Plan ASSESSMENT/PLAN: 1. Acute cough - ICD9: 786.2, ICD10: R05.1 (primary diagnosis) Chest x-ray is clear. Pain is reproducible with movement and palpation of the chest wall. Prednisone prescribed to help with shoulder pain and this as well. Jaronon. Discussed red flag symptoms to be seen in the ER. Patient agreeable. - XR CHEST 2V FRONTAL/LAT 2. Chronic shoulder pain, unspecified laterality - ICD9: 719.41, 338.29, ICD10: M25.519, G89.29 Patient has moderate degenerative changes on x-ray of both shoulders. Recommend follow-up with orthopedics. Prednisone Rx for pain. She is agreeable with plan. - XR SHOULDER GENERAL 3V OR MORE AP/TRUE AP/OTHER LEFT - XR SHOULDER GENERAL 3V OR MORE AP/TRUE AP/OTHER RIGHT Laura Garcia PA-C Allergies As of Date: 02/01/2024 (No Known Allergies) Date Reviewed: 02/01/2024 Reviewed by: Karoline Whalen LPN - Fully Assessed Reason for Visit: Cough [28] Cmt: Cough x 3 weeks Primary Visit Diagnosis:Acute cough [R05.1] Other Visit Diagnosis:Chronic shoulder pain, unspecified laterality [M25.519, G89.29] Order(s):XR CHEST 2V FRONTAL/LAT [[id number]] Order #: [id number] FUTURE XR SHOULDER GENERAL 3V OR MORE AP/TRUE AP (more content not included)... Normal [facility] XR CHEST 2V FRONTAL/LATon XR CHEST 2V FRONTAL/LAT * * *Final Repor t* * * DATE OF EXAM: Feb 01 2024 6:42PM WOX [id number] - XR CHEST 2V FRONTAL/LAT / PROCEDURE REASON: Acute cough * * * * Physician Interpretation * * * * EXAMINATION: CHEST RADIOGRAPH (2 VIEW FRONTAL and LATERAL) CLINICAL HISTORY: Acute cough MQ: [id number] EXAM DATE/TIME: 02/01/2024 6:42 PM COMPARISON: No relevant prior studies available. RESULT: Lines, tubes, and devices: None. Lungs and pleura: No consolidation. No lung mass. No pleural effusion. No pneumothorax. Cardiomediastinal silhouette: The cardiac silhouette is within normal limits. There is tortuosity of the thoracic aorta. Bones and soft tissues: There are degenerative changes in the spine. IMPRESSION: No acute radiographic abnormality. Maintenance Controller: [facility] Transcribe Date/Time: Feb 01 2024 6:47P Dictated by : MANDIE ABEL MD This examination was interpreted and the report reviewed and electronically signed by: MANDIE ABEL MD on Feb 01 2024 6:48PM EST [id number] CN Normal [facility] XR SHLDR >/=3V AP/KAYLEY AP/OTH R LTon 02-01-2024 XR SHLDR >/=3V AP/KAYLEY AP/OTHR LT * * *Final Report* * * DATE OF EXAM: Feb 01 2024 6:42PM WOX [id number] - XR SHLDR >/=3V AP/KAYLEY AP/OTHR LT / PROCEDURE REASON: multiple diagnoses * * * * Physician Interpretation * * * * PROCEDURE: Bilateral shoulders INDICATION: Chronic bilateral shoulder pain, no known injury. TECHNIQUE: XR SHLDR >/=3V AP/KAYLEY AP/OTHR LT, XR SHLDR >/=3V AP/KAYLEY AP/OTHR RT COMPARISON: None FINDINGS: Mild to moderate left glenohumeral joint osteoarthrosis. Minimal bilateral AC joint arthrosis. Acromiohumeral intervals are maintained. Right glenohumeral joint is within normal limits. No fracture or dislocation. IMPRESSION: Degenerative changes, left more advanced than right Maintenance Controller: [facility] Transcribe Date/Time: Feb 01 2024 7:11P Dictated by : KYLE ARIZMENDI MD This examination was interpreted and the report reviewed and electronically signed by: KYLE ARIZMENDI MD on Feb 01 2024 7:12PM EST [id number] CN Normal [facility] XR SHLDR >/=3V AP/KAYLEY AP/OTH R RTon 02-01-2024 XR SHLDR >/=3V AP/KAYLEY AP/OTHR RT * * *Final Report* * * DATE OF EXAM: Feb 01 2024 6:42PM WOX [id number] - XR SHLDR >/=3V AP/KAYLEY AP/OTHR RT / PROCEDURE REASON: multiple diagnoses * * * * Physician Interpretation * * * * PROCEDURE: Bilateral shoulders INDICATION: Chronic bilateral shoulder pain, no known injury. TECHNIQUE: XR SHLDR >/=3V AP/KAYLEY AP/OTHR LT, XR SHLDR >/=3V AP/KAYLEY AP/OTHR RT COMPARISON: None FINDINGS: Mild to moderate left glenohumeral joint osteoarthrosis. Minimal bilateral AC joint arthrosis. Acromiohumeral intervals are maintained. Right glenohumeral joint is within normal limits. No fracture or dislocation. 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 [facility] [address], [address] [place] [address] OFFICE VISIT Date of Service: 01/02/24 MR#: [id number] Acct: [id number] Name: MEHNAZ TORRES Rep #: [id number] 2 : 1970 Provider: MECHELLE hernandez Age/Sex: 53/F [place] [facility] [place]: Signed Intake Vital Signs 06/07/22 10:53 01/02/24 10:59 Height 5 ft 3 in 5 ft 3 in Weight: 209 lb 8 oz BMI 37.0 BP 134/86 H 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) Chief Complaint: Annual Custom 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 Required: No Is patient in pain?: No Allergies No Known Allergies Allergy (Verified 01/02/24 10:59) Is last menstrual period known: No Post menopausal: Yes Patient : No : No PFSH Medical History Fibroid, uterine History of hypertension Surgical History S/P cholecystectomy Family History Mother Hypertension Brother Hypertension Sister Breast cancer Social History (Updated 06/07/22 @ 10:53 by Hayley Dejesus) Smoking Status: Never smoker alcohol intake: current details: occasionally substance use type: does not use caffeine: Yes what type of physical activity do you participate in: none seatbelt use: always do you feel safe at home: Yes additional social history: Single- Works for the [employer] History 0 Elective abortions Hx Para Spontaneous abortions Hx # Term Pregnancies Ectopic pregnancies Hx # Pregnancies Multiple births # of living children HPI Encounter for routine gynecological examination Details: MEHNAZ TORRES is a 53 year old who presents for annual exam. Denies concerns Last PAP: 2021 History of abnormal PAP: no Last mammogram: 11/2023 History of abnormal mammogram: benign bx Colon cancer screening: thinks less then 10 yr at [facility] Other preventative health care screenings: [facility]. Female Reproductive History Questions: metorrhagia: No and sexually active: No Menopausal Treatment: No HRT, No Vaginal Estrogen, No Osphena, No OTC treatments and No prescription non-hormonal treatment ROS Const Constitutional: Denies fatigue, weight gain or weight loss Cardio Card: Denies chest pain Resp Resp: Denies cough or dyspnea on exertion GI GI: Denies abdominal pain, bloating, change in stool character, constipation or vomiting : Reports as per HPI; Denies difficulty voiding, pelvic pain, urinary frequency, urinary incontinence, urinary urgency, vaginal discharge or vaginal pruritus Exam Const General: cooperative, healthy appearing, no acute distress and well developed Orientation: alert, oriented to person and oriented to place [facility] Head: normal to inspection Neck Neck: normal visual inspection Thyroid: thyroid normal Lymphatic: no lymphadenopathy noted Chest Breast inspection: normal inspection of the breasts and normal inspection of the axillae Breast palpation: normal palpation of the breasts, normal palpation of the axillae and no axillary lymphadenopathy Resp Effort Inspection: normal respiratory effort GI Palpation: soft, no masses and nontender Rectal Exam: deferred External Female Exam: normal external appearance and normal appearance of the urethra Urethra: normal appearance of the urethra and normal palpation Speculum Exam - Vagina: normal appearance of the vagina and normal vaginal discharge Speculum Exam - Cervix: normal appearance of the cervix Bimanual Exam- Vagina Uterus: normal bimanual exam, uterine size normal, uterine shape normal and non-tender Bimanual Exam- Adnexa, other: normal adnexae, no masses, normal and non-tender Pelvic Support: normal Neuro General: patient alert and patient oriented x3 Psych Affect: normal affect Coding Level of Care Code Off vis,est,prev 40-64yrs Diagnoses Encounter for gynecological examination without abnormal finding Z01.419 Gynecological examination findings: abnormal findings ABSENT Assessment and Plan Assessment and Plan (1) Encounter for routine gynecological examination: Qualifiers: Gynecological examination findings: abnormal findings ABSENT Qualified Code(s): Z01.419 - Encounter for gynecological examination (general) (routine) without abnormal findings Orders: Orders POC Urinalysis 2 Dip (Clinic) Today Plan Completed breast and pelvic exam Reviewed diet and exercise Pap 2021 Mammogram recent breast self exam encouraged monthly Colonoscopy she will check with Dr Cordoba to see when due RTO 1 year, prn with problems Paige Moore [facility] 01/02/24 1115 Date Paige Moore NP WARE SERVER-C Cosigner Signature: (more content not included)... Normal [facility] No Panel InformationOrdered By: Paige Moore on 08-02-2022 Vitamin D 25-Hydroxy 48.1 ng/mL [facility] Comment on above: Vitamin D 25(OH) Sta tus Range Deficiency <20 ng/mL (50nmol/L) Insufficiency 20 - 30 ng/mL (50 - 75 nmol/L) Sufficiency 30 - 100 ng/mL (75 - 250 nmol/L) Toxicity >100 ng/mL (>250 nmol/L) No Panel InformationOrdered By: Paige Moore on 07-05-2022 Vitamin D 25-Hydroxy 29.1 ng/mL [facility] Comment on above: Vitamin D 25(OH) Sta tus Range Deficiency <20 ng/mL (50nmol/L) Insufficiency 20 - 30 ng/mL (50 - 75 nmol/L) Sufficiency 30 - 100 ng/mL (75 - 250 nmol/L) Toxicity >100 ng/mL (>250 nmol/L) Absolute lymphocyte countOrd ered By: Paige Moore on 06-07-2022 Lymphocytes Auto (Unsp spec) [#/Vol] 1.02 10*3/uL 0.83-4.51 [facility] Basophil percentageOrdered B y: Paige Moore on 06-07-2022 Basophils/100 WBC (Bld) 0.7 % 0-1 [facility] Eosinophils/100 WBC (Bld) 0.7 % 0-5 [facility] Neutrophils (Bld) [#/Vol] 3.9 10*3/uL 2.0-7.7 [facility] Neutrophils/100 WBC (Bld) 72.9 % 47-70 [facility] WBC (Bld) [#/Vol] 5.3 10*3/uL 4.4-11.0 [facility] Blood erythrocytes count (nu mber/volume)Ordered By: Paige Moore on 06-07-2022 RBC (Bld) [#/Vol] 4.29 10*6/uL 4.2-5.4 [facility] Blood hemoglobin measurement (mass/volume)Ordered By: Paige Moore on 06-07-2022 Hemoglobin (Bld) [Mass/Vol] 13.0 g/dL 12.0-15.0 [facility] Blood lymphocytes/100 leukoc ytesOrdered By: Paige Moore on 06-07-2022 Lymphocytes/100 WBC (Bld) 19.1 % 19-41 [facility] Blood monocytes/100 leukocyt esOrdered By: Paige Moore on 06-07-2022 Monocytes/100 WBC (Bld) 6.4 % 0-10 [facility] Blood platelet mean volumeOr dered By: Paige Moore on 06-07-2022 Platelet mean volume (Bld) [Entitic vol] 11.4 fL 6.2-12.0 [facility] Determination of erythrocyte mean corpuscular volume (MCV)Ordered By: Paige Moore on 06-07-2022 MCV (RBC) [Entitic vol] 89.7 fL 81-99 [facility] Hematocrit Auto (Bld) [Volum e fraction]Ordered By: Paige Moore on 06-07-2022 Hematocrit (Bld) [Volume fraction] 38.5 % 37-47 [facility] Laboratory - Chemistry and C hemistry - challengeOrdered By: Paige Moore on 06-07-2022 Free T4 [Mass/Vol] 0.98 ng/dL 0.76-1.46 [facility] Laboratory - Hematology and Cell countsOrdered By: Paige Moore on 06-07-2022 Erythrocyte distribution width (RBC) [Entitic vol] 40.3 fL 35.1-43.9 [facility] Erythrocyte distribution width (RBC) [Ratio] 12.4 % 11.6-14.6 [facility] Immature granulocytes/100 WBC (Bld) 0.200 % 0.0-0.9 [facility] Comment on above: IG% - Immature Granu locytes (promyelocytes, myelocytes and metamyelocytes) > 1% indicates that a LEFT SHIFT is Present. MCH (RBC) [Entitic mass] 30.3 pg 27.0-32.0 [facility] Nucleated RBC/100 WBC (Bld) [Ratio] 0 % 0-5 [facility] MCHC Auto (RBC) [Mass/Vol]Or dered By: Paige Moore on 06-07-2022 MCHC (RBC) [Mass/Vol] 33.8 g/dL 32-36 [facility] No Panel InformationOrdered By: Paige Moore on 06-07-2022 Thyroid Stimulating Hormone (TSH) 1.40 uIU/mL 0.358-3.74 [facility] Vitamin D 25-Hydroxy 11.3 ng/mL [facility] Comment on above: Vitamin D 25(OH) Sta tus Range Deficiency <20 ng/mL (50nmol/L) Insufficiency 20 - 30 ng/mL (50 - 75 nmol/L) Sufficiency 30 - 100 ng/mL (75 - 250 nmol/L) Toxicity >100 ng/mL (>250 nmol/L) Platelets bldOrdered By: Kang Moore on 06-07-2022 Platelets (Bld) [#/Vol] 179 10*3/uL 150-450 [facility] Influenza virus A and B RNA and SARS-CoV-2 (COVID-19) N gene panel MALLORIE+probe (Resp)on 02-16-2022 FLUAV RNA MALLORIE+probe Ql (Unsp spec) Negative Negative for Influenza A by RT-PCR [facility] FLUBV RNA MALLORIE+probe Ql (Unsp spec) Negative Negative for Influenza B by RT-PCR [facility] SARS-CoV-2 (COVID-19) RNA MALLORIE+probe Ql (Resp) SARS-CoV-2 (Agent of COVID-19) Detected by RT-PCR or equivalent method. Abnormal Not Detected [facility] Vital Signs Date Time Vital Sign Value Performing Clinician Faci lity 06-07-2022 10:53-0400 Body height 160.[address] Codi Cordoba Work Phone: [facility] 06-07-2022 10:45-0400 Body mass index (BMI) [Ratio] 32.6 kg/m2 Dr. Codi Cordoba Work Phone: [facility] 06-07-2022 10:45-0400 Body weight 83.[address] Codi Cordoba Work Phone: [facility] 06-07-2022 10:45-0400 Diastolic blood pressure 82 mm[Hg] Dr. Codi Cordoba Work Phone: [facility] 06-07-2022 10:45-0400 Systolic blood pressure 140 mm[Hg] Dr. Codi Cordoba Work Phone: [facility] 02-15-2022 12:00-0500 Body temperature 100 [degF] Abdi Ann MD Work Phone: [facility] 02-15-2022 12:00-0500 Body weight 78.11 kg Abdi Ann MD Work Phone: [facility] 02-15-2022 12:00-0500 Diastolic blood pressure 70 mm[Hg] Abdi Ann MD Work Phone: [facility] 02-15-2022 12:00-0500 Heart rate 92 /min Abdi Ann MD Work Phone: [facility] 02-15-2022 12:00-0500 Respiratory rate 20 /min Abdi Ann MD Work Phone: [facility] 02-15-2022 12:00-0500 SaO2% (BldA) [Mass fraction] 96 % Abdi Ann MD Work Phone: [facility] 02-15-2022 12:00-0500 Systolic blood pressure 110 mm[Hg] Abdi Ann MD Work Phone: [facility] 11-25-2021 07:59-0400 Body height 160.[address] Codi Cordoba Work Phone: [facility] Work Phone: 11-25-2021 07:59-0400 Body mass index (BMI) [Ratio] 33.3 kg/m2 Dr. Codi Cordoba Work Phone: [facility] Work Phone: 11-25-2021 07:59-0400 Body temperature 97.2 [degF] Dr. Codi Cordoba Work Phone: [facility] Work Phone: 11-25-2021 07:59-0400 Body weight 85.[address] Codi Cordoba Work Phone: [facility] Work Phone: 11-25-2021 07:59-0400 Diastolic blood pressure 91 mm[Hg] Dr. Codi Cordoba Work Phone: [facility] Work Phone: 11-25-2021 07:59-0400 Heart rate 70 /min Dr. Codi Cordoba Work Phone: [facility] Work Phone: 11-25-2021 07:59-0400 Respiratory rate 16 /min Dr. Codi Cordoba Work Phone: [facility] Work Phone: 11-25-2021 07:59-0400 SaO2% (BldA) [Mass fraction] 97 % Dr. Codi Cordoba Work Phone: [facility] Work Phone: 11-25-2021 07:59-0400 Systolic blood pressure 153 mm[Hg] Dr. Codi Cordoba Work Phone: [facility] Work Phone: Encounters Encounter Date Encounter Type Care Provider Facility Start: 12-25-2024 ambulatory Codi Mai y:[facility] Start: 11-22-2024 End: 11-22-2024 ambulatory ONEYDA ROSA Facility:[facility] Start: 11-22-2024 End: 11-22-2024 ambulatory ONEYDA ROSA Facility:[facility] Start: 02-01-2024 End: 02-01-2024 ambulatory LAURA GARCIA Facility:[facility] Start: 01-02-2024 Encounter for gynecological examination (general) (routine) without abnormal findings Paige [facility] Start: 01-02-2024 End: 01-02-2024 ambulatory Paige Moore [place] Start: 12-13-2022 End: 12-13-2022 ambulatory [facility] Work Phone: Start: 12-13-2022 End: 12-13-2022 Patient encounter procedure [facility] Work Phone: Start: 08-02-2022 End: 08-02-[address] Codi Cordoba Work Phone: [facility] Work Phone: Start: 08-02-2022 End: 08-02-[address] Codi Cordoba Work Phone: [facility] Start: 07-05-2022 End: 07-05-[address] Codi Cordoba Work Phone: [facility] Start: 06-07-2022 End: 06-07-[address] Codi Cordoba Work Phone: [facility] Start: 06-07-2022 End: 06-07-[address] Codi Cordoba Work Phone: [facility] Work Phone: Start: 06-07-2022 End: 06-07-[address] Codi Cordoba Work Phone: [facility] Ul[facility] Start: 02-16-2022 Telephone encounter Codi sewell MD Work Phone: [facility] [place] Comment on above: Results Start: 02-15-2022 End: 02-15-2022 Patient encounter procedure Abdi Ann MD Work Phone: [facility] Comment on above: Influenza-like illne ss (Primary Dx) Start: 12-10-2021 Telephone encounter Codi sewell MD Work Phone: [facility] [place] Comment on above: Results Start: 11-25-2021 End: 11-25-[address] Codi Cordoba Work Phone: [facility] Work Phone: Start: 11-25-2021 End: 11-25-[address] Codi Cordoba Work Phone: [facility], Specimen Start: 11-25-2021 End: 11-25-[address] Codi Cordoba Work Phone: [facility] Start: 11-23-2021 End: 11-23-[address] Codi Cordoba Work Phone: [facility] Work Phone: Start: 11-23-2021 End: 11-23-[address] Codi Cordoba Work Phone: [facility] Start: 11-12-2021 End: 11-12-2021 ambulatory [facility] Work Phone: Start: 11-12-2021 End: 11-12-2021 Patient encounter procedure [facility] Start: 10-19-2021 End: 10-19-2021 ambulatory [facility] Work Phone: Start: 10-19-2021 End: 10-19-2021 Patient encounter procedure [facility]Neu[facility] Procedures Date Procedure Procedure Detail Performing Clinician Start: 12-13-2022 Screening mammography Start: 06-07-[address] Codi Cordoba Work Phone: Start: 02-15-2022 COVID WITH FLUA+B, ROUTINE Abdi Ann MD Work Phone: Start: 11-23-[address] Codi Cordoba Work Phone: Start: 11-23-[address] Codi funez Work Phone: Start: 11-12-2021 Screening mammography Start: 11-04-2020 Mammography Codi gimenez MD Work Phone: Start: 07-09-2015 Colonoscopy Codi gimenez MD Work Phone: Plan of Treatment Date Care Activity Detail Author Start: 12-09-2024 DIABETES SCREEN DIABETES SCREEN [facility] Start: 07-20-2022 Urine microalbumin profile DTAP,TDAP,TD (2 - Td or Tdap) [facility] Start: 06-13-2022 LIPID SCREEN LIPID SCREEN [facility] Start: 11-04-2021 Mammography MAMMOGRAM [facility] Start: 10-22-2021 Influenza vaccination INFLUENZA (#1) [facility] Start: 08-26-2021 HPV TESTING HPV TESTING [facility] Start: 08-26-2021 PAP TESTING PAP TESTING [facility] Start: 04-02-2021 COVID-19 VACCINE (4 - Booster for Moderna series) COVID-19 VACCINE (4 - Booster for Moderna series) [facility] Start: 02-21-2021 DEPRESSION ASSESSMENT DEPRESSION ASSESSMENT [facility] Start: 07-08-2020 Colonoscopy COLONOSCOPY [facility] Start: 07-08-2020 COLORECTAL CANCER SCREENING COLORECTAL CANCER SCREENING [facility] Start: 06-13-2020 DIABETES SCREEN DIABETES SCREEN [facility] Start: 2018 SHINGRIX VACCINE (1 of 2) SHINGRIX VACCINE (1 of 2) [facility] Start: 09-13-2016 End: 09-14-2016 Transvaginal us, non-ob US Transvaginal [facility] Start: 09-13-2016 End: 09-14-2016 Us exam, pelvic, complete US Pelvis [facility] Start: 2013 COLOGUARD (FIT-DNA) COLOGUARD (FIT-DNA) [facility] Start: [address] COLONOGRAPHY [facility] Start: 2013 FECAL OCCULT BLOOD FECAL OCCULT BLOOD [facility] Start: 2013 SIGMOIDOSCOPY SIGMOIDOSCOPY [facility] Start: 1986 HEPATITIS C SCREENING HEPATITIS C SCREENING [facility] Start: 1986 HIV SCREENING HIV SCREENING [facility] Start: 06-02-1969 COVID-19 VACCINE (#1) COVID-19 VACCINE (#1) [facility] Start: 1968 HEPATITIS B (1 of 3 - 3-dose series) HEPATITIS B (1 of 3 - 3-dose series) [facility] MG Breast - bilatera l Screening [facility] Immunizations Immunization Date Immunization Notes Care Provider Luis ugalde 02-06-2016 influenza, injectabl e, quadrivalent, contains preservative Codi Cordoba MD Work Phone: [facility] Work Phone: 12-03-2013 influenza, seasonal, injectable Codi Cordoba MD Work Phone: [facility] 07-20-2012 tetanus toxoid, redu jessica diphtheria toxoid, and acellular pertussis vaccine, adsorbed Codi Cordoba MD Work Phone: [facility] 01-01-2012 influenza virus vaccine, unspecified formulation Codi Cordoba MD Work Phone: [facility] Payers Date Payer Category Payer Self-pay [id number] 2023 Private Health Insurance [id number] 2021 Private Health Insurance AETNA A ETNA CHOICE POS II [id number] 2021-Present [phone] [address] [place] [address] POS [id number] 2015 Unknown ANTHEM [id number] 2006 Unknown ANTHJOE MARION ACCE SS PPO [id number] 2006-Present [phone] [address] [place] [address] PPO [id number] Private Health Insurance AETNA [id number] Unknown [facility] [id number] Unknown [facility] PACKAGE PLAN [id number] Unknown [id number] Unknown [id number] Social History Date Type Detail Facility Start: 04-15-2021 End: 06-07-2022 Tobacco smoking status SCIS Unknown if ever smoked [facility] Start: 1970 Sex Assigned At Female C [facility] Work Phone[facility] Work Phone: Start: 07-04-2017 End: 02-15-2022 Alcohol intake Current drinker of alcohol (finding) [facility] Start: 06-05-2015 Alcohol Comment Socially Marcio [facility] Clinical Notes 07-09-2015 to 11-22-2024 Telephone Encounter - Deonna Mckay RN - 02/16/2022 9:41 AM Walter Ann MD - 02/15/2022 12:07 PM ESTTelephone Encounter - Lidia Mina DRIVER LICENSE EXAMINER - 12/23/2021 2:55 PM EDT Note Date & Type Note Facility 11-22-2024 Note HNO ID: [id number] Author: OENYDA ROSA MD Service: ? Author Type: Physician Type: Progress Notes Filed: 11/22/2024 16:07 Note Text: Family Medicine OUTPATIENT VISIT November 22, 2024 CC: Establish care HPI: 53 year old female patient with a history of GUANAKITO Obesity Here to establish care Brought in a lipid panel. LDL 98. Last colonoscopy 2015, no colonic polyps. No wt loss, GI symptoms at present. Asking if she is due for dexa. No hx of fractures. She is feeling well today. She is feeling anxious due to having many life stressors currently. Does not feel she needs therapy or meds currently. She recently had a mammogram out of system. Review of Systems PAIN ASSESSMENT: Negative for pain, history of chronic pain, or current treatment for a chronic pain condition. GENERAL: No weight loss, or fevers HEENT: Negative for frequent or significant headaches RESPIRATORY: Negative for cough, wheezing, shortness of breath CARDIOVASCULAR: Negative for chest pain, palpitations, PND or orthopnea GI: No nausea, vomiting, or diarrhea or abdominal pain. No UT bleeding or melana : No history of dysuria, frequency, urgency, or change in urine appearance NEURO: No history of headaches, numbness, weakness, or changes to vision or hearing Health maintenance: Depression Screening Never done Anxiety Screening Never done Hepatitis B Vaccine(1 of 3 - 19+ 3-dose series) Never done Shingrix Vaccine(1 of 2) Never done Pneumococcal Vaccine: 50+(1 of 1 - PCV) Never done Diabetes Screening due on 06/13/2020 Colorectal Cancer Screening due on 07/08/2020 Cervical Cancer Screening due on 08/26/2021 DTaP,Tdap,Td Vaccine(2 - Td or Tdap) due on 07/20/2022 Mammogram Screening due on 12/14/2023 Covid-19 Vaccine( season) due on 10/22/2024 Allergies: ALLERGIES No Known Allergies Medications: Cholecalciferol, Vitamin D3, (VITAMIN D) 25 mcg (1,000 unit) cap Take 1 capsule by mouth once daily. Past Medical History: PAST MEDICAL HISTORY Diagnosis Date Arthritis of both shoulders Cholelithiasis 09/10/2015 Epigastric pain 09/10/2015 Herniated lumbar intervertebral disc L5-S1 Irregular menses Social History: SOCIAL HISTORY[1] Family History: Family History Problem Relation Age of Onset Hypertension Mother Heart Father Hypertropic Heart Breast Cancer Sister other (Crohn's) Sister Diabetes Maternal Grandmother Colon Cancer Maternal Grandfather Heart disease Paternal Grandfather BP 156/95 Pulse 79 Temp 36.6 ?C (97.9 ?F) (Temporal) Resp 20 Ht 153.7 cm (5' 0.5") Wt 93.4 kg (205 lb 12.8 oz) LMP 06/25/2016 (Exact Date) SpO2 96% BMI 39.53 kg/m? General: Awake, alert, not in acute distress, obese. DATABASE SUPPORT: Answering questions appropriately. No abnormal posturing or positioning. Speech is normal. Strength grossly intact. RESP: Clear lungs bilateral with good air entry, No increased work of breathing CVS: RRR, No murmur. Pulses 2+. GI: Abdomen is soft, non distended, non tender. No masses or hepatomegaly appreciated. Skin/Other: No rashes or lesions. HEENT: pupils equal Extremities: No peripheral edema, swelling or erythema of lower extremities. Labs: Reviewed the following: Pertinent labs as outlined above Lipids reviewed Imaging: Reviewed the following: Reviewed recent pertinent imaging Assessment/Plan: ASSESSMENT/PLAN: 1. Encounter to establish care - ICD9: V65.8, ICD10: Z76.89 (primary diagnosis) Reviewed hx as above - VITAMIN D 25 HYDROXY 2. Screening for depression - ICD9: V79.0, ICD10: Z13.31 neg - DEPRESSION SCREENING 3. Encounter for screening examination for other mental health and behavioral disorders - ICD9: V79.8, ICD10: Z13.39 Endorsing sypmtoms, declines referral to therapy. Will review at next visit - ANXIETY SCREENING 4. Obesity, unspecified class, unspecified obesity type, unspecified whether serious comorbidity present - ICD9: 278.00, ICD10: E66.9 Newly diagnosed - Behavioral intervention - COMPREHENSIVE METABOLIC PANEL - HEMOGLOBIN A1C 5. GUANAKITO (obstructive sleep apnea) - ICD9: 327.23, ICD10: G47.33 Not being treated. Discussed need for titration study, that GUANAKITO could contribute to HTN if this is confirmed. - PAP TITRATION PSG (CPAP, BIPAP, ASV) - POLYSOMNOGRAM (PSG) 6. Elevated blood pressure reading without diagnosis of hypertension - ICD9: 796.2, ICD10: R03.0 - Encouraged dietary sodium restriction/DASH diet - Recommended regular aerobic exercise. - Recommend home blood pressure monitoring, to bring results in on next visit - Goal of BP <130/80 - TSH W/REFLEX FT4 Cmp Discussed s/s htn emergency, go to ED if this occurs Oneyda Rosa Remainder of plan including medications to be continued as prior to this visit unless noted above. I will reach out if lab testing or imaging is abnormal and requires a change in the plan discussed above. Otherwise, we can review results at fo (more content not included)... [facility] 02-01-2024 Note HNO ID: [id number] Author: LAURA GARCIA PA-C Service: ? Author Type: Physician Electrifier Operator Type: Progress Notes Filed: 02/01/2024 19:19 Note Text: This note was created using [employer]. Subjective Mehnaz Torres is a 53 year old female. HPI Patient presents with a chief complaint of cough and chest congestion. She had COVID about 3 weeks ago. States her cough had improved but then the past 3 days worsened again. She started getting some pain in her chest with cough and with movement. States it also hurts to sneeze. Denies shortness of breath. No pain in her back. Denies leg pain or swelling. No history of PE or DVT. No recent surgeries. No diarrhea or vomiting. She also is complaining of bilateral shoulder pain for several years. She states that hurts to lift her arms up above her head and her arms feel weak. Denies any injury to her shoulders. She has not been evaluated for this previously. Review of Systems HENT: Positive for congestion. Negative for ear pain, rhinorrhea, sinus pressure, sinus pain and sore throat. Respiratory: Positive for cough. Cardiovascular: Positive for chest pain (with cough and movement). Musculoskeletal: Bilateral shoulder pain All other systems reviewed and are negative. PAST MEDICAL HISTORY Diagnosis Date Cholelithiasis 09/10/2015 Epigastric pain 09/10/2015 Herniated lumbar intervertebral disc L5-S1 Irregular menses No current outpatient medications on file. No current facility-administered medications for this visit. PAST SURGICAL HISTORY Procedure Laterality Date COLONOSCOPY FLX DX W/COLLJ SPEC WHEN PFRMD 07/09/2015 Colonoscopy ESOPHAGOGASTRODUODENOSCOPY TRANSORAL DIAGNOSTIC 07/09/2015 EGD L'SCOPE CHOLECYSTECTOMY 09/10/15 UNSPECIFIED ORAL SURGERY PROCEDURE, BY REPORT wisdom teeth removed. FAMILY HISTORY Problem Relation Age of Onset Hypertension Mother Heart Father Hypertropic Heart Breast Cancer Sister other (Crohn's) Sister Social History Tobacco Use Smoking status: Never Smokeless tobacco: Never Substance Use Topics Alcohol use: Yes Comment: Socially Drug use: No Objective BP 122/80 Pulse 84 Temp 36.5 ?C (97.7 ?F) (Tympanic) Resp 18 Wt 94.9 kg (209 lb 3.5 oz) LMP 06/25/2016 (Exact Date) SpO2 97% BMI 37.06 kg/m? Physical Exam Vitals reviewed. Constitutional: Appearance: Normal appearance. HENT: Head: Normocephalic and atraumatic. Right Ear: Tympanic membrane, ear canal and external ear normal. Left Ear: Tympanic membrane, ear canal and external ear normal. Nose: Congestion present. Mouth/Throat: Mouth: Mucous membranes are moist. Pharynx: Oropharynx is clear. Cardiovascular: Rate and Rhythm: Normal rate and regular rhythm. Heart sounds: Normal heart sounds. Pulmonary: Effort: Pulmonary effort is normal. Breath sounds: Normal breath sounds. No wheezing or rhonchi. Comments: Patient has tenderness over the right chest wall on palpation and with movement. Also some mild pain with taking a breath. Musculoskeletal: Comments: No erythema swelling or bruising of the bilateral shoulders. She has pain with lifting the arms past 90 degrees. Pain with internal and external rotation bilaterally. Radial pulse 2+ bilaterally. Normal hand grasp strength. Skin: General: Skin is warm and dry. Neurological: General: No focal deficit present. Mental Status: She is alert and oriented to person, place, and time. Assessment and Plan ASSESSMENT/PLAN: 1. Acute cough - ICD9: 786.2, ICD10: R05.1 (primary diagnosis) Chest x-ray is clear. Pain is reproducible with movement and palpation of the chest wall. Prednisone prescribed to help with shoulder pain and this as well. Radha. Discussed red flag symptoms to be seen in the ER. Patient agreeable. - XR CHEST 2V FRONTAL/LAT 2. Chronic shoulder pain, unspecified laterality - ICD9: 719.41, 338.29, ICD10: M25.519, G89.29 Patient has moderate degenerative changes on x-ray of both shoulders. Recommend follow-up with orthopedics. Prednisone Rx for pain. She is agreeable with plan. - XR SHOULDER GENERAL 3V OR MORE AP/TRUE AP/OTHER LEFT - XR SHOULDER GENERAL 3V OR MORE AP/TRUE AP/OTHER RIGHT Laura Garcia PA-C [facility] 02-01-2024 Note HNO ID: [id number] Author: ADRIA JACKSON RT(R) Service: ? Author Type: Glass Ribbon Machine Operator Assistant Type: Progress Notes Filed: 02/01/2024 18:39 Note Text: Radiology Service Progress Note PATIENT NAME: Mehnaz Torres DATE OF SERVICE: February 01, 2024 TIME: 6:25 PM PATIENT IDENTITY VERIFICATION COMPLETED USING TWO (2) IDENTIFIERS: Name and Date of confirmed by patient verbally. FALL SCREENING: Has the patient had 2 falls in the last year or 1 fall with injury or currently using an Ambulatory Assistive Device (Walker, Cane, Wheelchair, Crutches, etc.)? No PATIENT GENDER DATA: Female. status: : No status: NO. PATIENT RELEVANT IMPLANT DATA REVIEWED: Yes PATIENT PRESENTS WITH AN IMPLANTABLE OR ATTACHED EXHIBITIONS CURATOR: No RADIOLOGY DEPARTMENT: General X-ray: Exam(s) Completed: Chest X-Ray Upper Extremity X-Ray(s): Shoulder, AP / TRUE AP / AXILLARY bilateral PERIPHERAL IV DATA: Not applicable SIGNED BY: RT Martha(R) February 01, 2024 6:25 PM [facility] 02-16-2022 Miscellaneous Notes Patient calling in to verify positive covid test from 02/15/22. Result verified. Patient had questions regarding possible paxlovid treatment. This nurse encouraged VV appt be made to discuss all details with a provider. Pt has decided to not make VV appt at this time and aware she can call back or use My Chart to make an appt if she changes her mind. Doenna Wurst, RN documented in this encounter [facility] 02-15-2022 History of Presen t illness Narrative Patient presents with: Covid19 Concern: + exposure, DOUGLASS, ST, fatigue, bodyaches x4 days HPI: Feeling sick for 3 days. Positive symptoms: Sore throat, Body Aches, Malaise, Fatigue, Headache, Cough, Nasal Congestion, Rhinorrhea, Negative symptoms: Vomiting, Diarrhea, OTC: Ibuprofen Co-worker has COVID. 2 home tests negative. PAST MEDICAL HISTORY Diagnosis Date Cholelithiasis 09/10/2015 Epigastric pain 09/10/2015 Herniated lumbar intervertebral disc L5-S1 Irregular menses MEDICATIONS: No current outpatient medications on file. No current facility-administered medications for this visit. ALLERGIES: ALLERGIES No Known Allergies VITALS: BP 110/70 Pulse 92 Temp 37.8 C (100 F) Resp 20 Wt 78.1 kg (172 lb 3.2 oz) LMP 06/25/2016 (Exact Date) SpO2 96% BMI 30.50 kg/m PHYSICAL EXAM: GEN: mildly ill appearing HEENT: PERRL, EOMI, conjunctiva clear Ears: canals clear. TMs without erythema, bulge, or effusion Sinuses: non-tender frontal sinus, non-tender maxillary sinuses Throat: moist mucous membranes, mild erythema, no exudate Neck: supple, no thyromegaly, no lymphadenopathy HEART: regular rate and rhythm, no murmurs LUNGS: clear to auscultation, no wheezes or crackles, no increased WOB ASSESSMENT/PLAN: 1. Influenza-like illness - ICD9: 487.1, ICD10: J11.1 - suspect viral URI, differential includes influenza and COVID-19. - Discussed supportive care treatment with home isolation, rest, hydration, cold medicine, and analgesia. - Red flags to seek further treatment include chest pain, shortness of breath, and lethargy; in the ER if severe. - COVID WITH FLUA+B, ROUTINE Abdi Ann MD documented in this encounter [facility] 12-23-2021 Miscellaneous Notes PATIENT NOTIFIED OF SAME. She will call back if she decides to est care again with Dr. Cordoba. Patient has not been seen in this office since 07/04/17, last saw Dr. Cordoba 01/28/14. She will need to schedule appointment to re-establish care if she still wants Dr. Cordoba as her PCP Peace Alcala APRN.CNP Labs completed. Please review they are in scanned labs Lipids,CBC,A1c,urine documented in this encounter [facility] 07-09-2015 History of Past i llness Narrative Problem Noted Date Resolved Date Epigastric pain 07/09/2015 07/09/2015 Nausea 07/09/2015 07/09/2015 Bright red rectal bleeding 07/09/201507/08 Vitamin D deficiency 01/03/2009 07/23/2013 documented as of this encounter (statuses as of 12/23/2021) [facility] History of Past illness Narrative* Problem Noted Date Resolved Date Epigastric pain 07/09/2015 07/09/2015 Nausea 07/09/2015 07/09/2015 Bright red rectal bleeding 07/09/201507/08 Vitamin D deficiency 01/03/2009 07/23/2013 documented as of this encounter (statuses as of 02/20/2022) [facility] History of Past illness Narrative* Problem Noted Date Resolved Date Epigastric pain 07/09/2015 07/09/2015 Nausea 07/09/2015 07/09/2015 Bright red rectal bleeding 07/09/201507/08 Vitamin D deficiency 01/03/2009 07/23/2013 documented as of this encounter (statuses as of 02/21/2022) [facility] noteNo assessment information availableWTriHealth [facility] Work Phone: Evaluation note* Diagnosis Onset Date Resolution Status Abnormal mammogram of left breast acute [facility] Work Phone: Evaluation note* Diagnosis Influenza-like illness- Primary Influenza with other respiratory manifestations [facility] this encounter [facility]* Diagnosis Onset Date Resolution Status Fatigue acute Hair loss acute Encounter for routine gynecological examination noneactive Contact dermatitis noneactiv e [facility] Work Phone: Chief Complaint and Reason for Visit Chief Complaint HYPERTENSION Chief Complaint HYPERTENSION SCREENING Chief Complaint HYPERTENSION SCREENING ABN LT MAMM L BREAST BIRADS 4 Reason for Visit Abnormal mammogram o f left breast Chief Complaint ABNORMAL MAMMO FOLLO W UP 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 Reason for Visit Fatigue Hair loss Encounter for routine gynecological examination Contact dermatitis Chief Complaint SCREENING Chief Complaint ABNORMAL MAMMO FOLLO W UP 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) Reason for Visit Fatigue Hair loss Encounter for routine gynecological examination Contact dermatitis Family History No Family History Records Found Relationship Condition Age at Onset Recorded Date/T lm mother Hypertension Unknown brother Hypertension Unknown sister Malignant neoplasm of breast Unknown Health Concerns Infection Onset Date Last Indicated Resolved Time COVID-19 Rule-Out 02/15/2022 02/15/2022 02/16/2022 4:53 AM EST Infection Onset Date Last Indicated Resolved Time COVID-19 Rule-Out 02/15/2022 02/15/2022 02/16/2022 4:53 AM EST COVID-19 Confirmed 02/15/2022 02/15/2022 Summary Purpose Advance Directives No Advanced Directives Records FoundNo Advanced Directives Records Found Additional Source Comments Goals (unrecognized section and content) Goals may be documented in a n alternate sectionGoals may be documented in an alternate sectionGoals may be documented in an alternate sectionGoals may be documented in an alternate sectionGoals may be documented in an alternate sectionGoals may be documented in an alternate sectionGoals may be documented in an alternate section Source Comments (unrecognize d section and content) In the event this informatio n is protected by the Federal Confidentiality of Alcohol and Drug Abuse Patient Records regulations: The Federal rules restrict any use of the information to criminally investigate or prosecute any alcohol or drug abuse patient.[facility] the event this information is protected by the Federal Confidentiality of Alcohol and Drug Abuse Patient Records regulations: The Federal rules restrict any use of the information to criminally investigate or prosecute any alcohol or drug abuse patient.[facility] Center[facility] the event this information is protected by the Federal Confidentiality of Alcohol and Drug Abuse Patient Records regulations: The Federal rules restrict any use of the information to criminally investigate or prosecute any alcohol or drug abuse patient.[facility] Reason for Visit (unrecogniz ed section and content) Reason Comments Results Reason Comments Covid19 Concern + exposure, DOUGLASS, ST, fatigue, bodyaches x4 days Care Teams (unrecognized sec tion and content) Communication Lecturer Relationship Specialty Start Date End Date Codi Cordoba MD [address], [place] [address] PCP - General 11/19/04 Communication Lecturer Relationship Specialty Start Date End Date Codi Cordoba MD [address], [place] [id number] PCP - General 11/19/04 Team Status: Active Member Role Status Dates Dr. Codi Cordoba MD Family Provider Active Dr. Codi Cordoba MD Primary Care Provider Active Team Status: Inactive Member Role Status Dates Dr. Codi Cordoba MD Primary Care Provider, Referr ing Provider Active Paige Moore NP, NP-C Attending Provider Active Team Status: Inactive Member Role Status Dates Dr. Codi Cordoba MD Primary Care Provider Active Dr. Ton Arnold MD Attending Provider, Referr ing Provider Active Paige Moore NP, WARE SERVER-C Other Provider Active Team Status: Inactive Member Role Status Dates Dr. Codi Cordoba MD Primary Care Provider Active Paige Moore NP WARE SERVER-C Attending Provider, Referring Provider Active INFORMATION SOURCE (unrecogn ized section and content) DATE CREATED AUTHOR 11/27/2024 [facility] DATE CREATED AUTHOR AUTHOR'S ORGANIZ ATION 12/23/2024 [facility] FOR RECORDS PERTAINING TO PATIENTS WHO ARE OR HAVE BEEN ENROLLED IN A CHEMICAL DEPENDENCY/SUBSTANCEABUSE PROGRAM, SOME INFORMATION MAY BE OMITTED. This clinical summary was aggregated from multiple sources. Caution should be exercised in using it in the provision of clinical care. This summary normalizes information from multiple sources, and as a consequence, information in this document may materially change the coding, format and clinical context of patient data. In addition, data may be omitted in some cases. CLINICAL DECISIONS SHOULD BE BASED ON THE PRIMARY CLINICAL RECORDS. [employer] provides no warranty or guarantee of the accuracy or completeness of information in this document.
== END | disposition home or self-care (01) ==
LOC: OPBI 12-26 07:07
PROVIDERS: PCP Internal Medicine; Referring Provider Nurse Practitioner Women's Health; Visit Provider Nurse Practitioner Women's Health
DX: Z12.31 Encounter for screening mammogram for malignant neoplasm of breast (principal); Z80.3 Family history of malignant neoplasm of breast
CPT/HCPCS: 77063; 77067

== ENCOUNTER → 2025-01-02 | Outpatient (CLI) | payer OTHER, SELFPAY ==
[2025-01-02 18:06] LABS: Vitamin D,25 Hydroxy 33.6 ng/mL (30-100)
== END | disposition home or self-care (01) ==
PROVIDERS: PCP Pediatrics; Visit Provider Nurse Practitioner Women's Health
DX: E55.9 Vitamin D deficiency, unspecified (principal); Z80.0 Family history of malignant neoplasm of digestive organs; Z80.3 Family history of malignant neoplasm of breast
CPT/HCPCS: 36415; 82306